=== PATIENT | female | born 1975 | race Caucasian/White ===

== ENCOUNTER 2022-09-29 05:36 | Day surgery (SDC) | payer BC ==
[2022-09-27 13:45] VITALS: BMI 27.2
[2022-09-29] MEDS ORDERED: Methylene Blue 50 MG/10 ML AMPUL ONE (06:19)
[2022-09-29] MEDS ORDERED: EPINEPHrine 1 MG/ML AMP ONE (06:19)
[2022-09-29] MEDS ORDERED: Bupivacaine PF 0.5% 30 ML VIAL ONE (06:19)
[2022-09-29] MEDS ORDERED: PROPOFOL 20 ML ONE (06:28)
[2022-09-29] MEDS ORDERED: Ondansetron PF 4 MG/2 ML Vial ONE ×2 (06:28→10:26)
[2022-09-29] MEDS ORDERED: Rocuronium Bromide 10 MG/ML (10ML VIAL) ONE (06:28)
[2022-09-29] MEDS ORDERED: Fentanyl 100 MCG/2 ML VIAL ONE (06:28)
[2022-09-29] MEDS ORDERED: Ketorolac Tromethamine 30 MG/ML VIAL ONE (06:28)
[2022-09-29] MEDS ORDERED: Glycopyrrolate 0.2 MG/ML 5 ML SYRINGE ONE (06:28)
[2022-09-29] MEDS ORDERED: Midazolam HCl 2 mg/2 ml Vial ONE ×2 (06:28→06:42)
[2022-09-29] MEDS ORDERED: Lidocaine 1% PF 5 ML VIAL ONE (06:28)
[2022-09-29] MEDS ORDERED: Lidocaine 1% MPF 2 ML VIAL ONE (06:39)
[2022-09-29] MEDS ORDERED: CEFAZOLIN 2 GM VIAL ONE (06:40)
[2022-09-29] MEDS ORDERED: Scopolamine 1.5 mg/72 hour Patch ONE (06:43)
[2022-09-29] MEDS ORDERED: Meperidine HCl/PF 25 MG/ML VIAL ONE (08:58)
[2022-09-29] MEDS ORDERED: Acetaminophen 500 MG TAB ONE (11:48)
[2022-09-29] MEDS ORDERED: HYDROcodone/Acetaminophen 7.5/325 mg Tablet ONE (12:29)
[2022-09-29 12:54] LABS: #Monocytes 0.2 10x3/uL (0.0-1.1); #Neutrophils 15.3 10x3/uL (1.5-8.4); %Basophils 0.2 % (0.0-2.0); %Eosinophils 0.1 % (0.0-6.0); %Lymphocytes 2.8 % (18.0-47.0); %Monocytes 1.2 % (0.0-10.0); %Neutrophils 95.3 % (40.0-75.0); Hemoglobin 10.3 g/dL (12.0-15.5); Mean Corpuscular HGB CONC 32.9 g/dL (32.0-36.0); Mean Corpuscular Hemoglobin 28.5 pg (27.0-33.0); Mean Corpuscular Volume 86.5 fl (81.6-98.3); Mean Platelet Volume 11.4 fl (7.4-10.4); Platelet Count 371 10x3/uL (150-450); RBC Distribution Width 14.6 % (11.5-14.5); Red Blood Cell (RBC) Count 3.62 10x6/uL (3.90-5.03)
[2022-09-29] MEDS ORDERED: Promethazine HCl 25 MG/ML VIAL ONE (12:54)
== END 2022-09-29 14:15 | disposition home or self-care (01) ==
LOC: CSHSDC 05:36
PROVIDERS: ATTEND Obstetrics & Gynecology
PROC: 0UT94ZZ Resection of Uterus, Percutaneous Endoscopic Approach (ICD-10-PCS; principal; 2022-09-29)
PROC: 0U5F4ZZ Destruction of Cul-de-sac, Percutaneous Endoscopic Approach (ICD-10-PCS; principal; 2022-09-29)
PROC: 0UT74ZZ Resection of Bilateral Fallopian Tubes, Percutaneous Endoscopic Approach (ICD-10-PCS; principal; 2022-09-29)
DX: D25.9 Leiomyoma of uterus, unspecified (principal); N92.0 Excessive and frequent menstruation with regular cycle; N73.6 Female pelvic peritoneal adhesions (postinfective); N94.5 Secondary dysmenorrhea; N94.10 Unspecified dyspareunia; N80.03 Adenomyosis of the uterus; N80.203 Endometriosis of bilateral fallopian tubes, unspecified depth; N80.329 Endometriosis of the posterior cul-de-sac, unspecified depth
CPT/HCPCS: 36415; 85025; 88307; 88342; C1776; J0171; J1885; J2175; J2250; J2405; J2550; J2704; J3010; Q9968; S0020